=== PATIENT | female | born 1955 | race Caucasian/White ===

== ENCOUNTER 2024-10-18 12:39 | Day surgery (SDC) | payer MEDICARE, OTHER ==
[2024-10-18] MEDS ORDERED: LIDOCAINE HCL 2% 100 MG/5 ML IJ ONE (12:40)
[2024-10-18] MEDS ORDERED: Versed 2 MG/2 ML Injection ONE (13:56)
[2024-10-18] MEDS ORDERED: propofoL IV ONE (14:46)
[2024-10-18] MEDS ORDERED: Lactated Ringers 1,000 ML IV ONE (16:10)
--- NOTE | 2024-10-18 17:02 | XRAY ---
Indication: Right C2-C4 MBB. Intraoperative fluoroscopy provided for 18 seconds. 2 digital spot image submitted for interpretation demonstrates posterior needle tips projecting over expected right C2-C4 nerve roots. Correlate with intraoperative findings/report.
--- NOTE | 2024-10-18 17:09 | XRAY ---
18 seconds of fluoroscopy was used in surgery for a right C2-C4 MBB.
== END 2024-10-18 15:20 | disposition home or self-care (01) ==
LOC: SDC-PAIN 12:39
PROVIDERS: ATTEND Psychiatry & Neurology Pain Medicine
DX: M47.812 Spondylosis without myelopathy or radiculopathy, cervical region (principal)

== ENCOUNTER 2024-11-01 14:48 | Day surgery (SDC) | payer MEDICARE, OTHER ==
[2024-11-01] MEDS ORDERED: BUPIVACAINE 0.5% VIAL IJ ONE (14:49)
[2024-11-01] MEDS ORDERED: propofoL IV ONE (17:22)
[2024-11-01] MEDS ORDERED: Lactated Ringers 1,000 ML IV ONE (17:56)
--- NOTE | 2024-11-01 19:06 | XRAY ---
Indication: Right C2-C4 MBB. Intraoperative fluoroscopy provided for 7 seconds. 2 digital spot image submitted for interpretation demonstrates posterior needle tips projecting over expected right C2-C4 nerve roots. Correlate with intraoperative findings/report.
--- NOTE | 2024-11-02 10:15 | XRAY ---
7 seconds of fluoroscopy used in surgery for a right C2-C4 MBB.
== END 2024-11-01 18:00 | disposition home or self-care (01) ==
LOC: SDC-PAIN 14:48
PROVIDERS: ATTEND Psychiatry & Neurology Pain Medicine
DX: M47.812 Spondylosis without myelopathy or radiculopathy, cervical region (principal)

== ENCOUNTER 2024-12-27 13:29 | Day surgery (SDC) | payer MEDICARE, OTHER ==
[2024-12-27] MEDS ORDERED: BUPIVACAINE 0.5% VIAL IJ ONE (13:30)
[2024-12-27] MEDS ORDERED: LIDOCAINE HCL 1% 50 MG/5 ML VL IJ ONE (13:30)
[2024-12-27] MEDS ORDERED: Lactated Ringers 1,000 ML IV ONE (15:49)
[2024-12-27] MEDS ORDERED: propofoL IV ONE (16:12)
--- NOTE | 2024-12-27 16:57 | XRAY ---
Indication: Right C2-C4 RFA. Intraoperative fluoroscopy provided for 41 seconds. 3 digital spot image submitted for interpretation demonstrates posterior needle tips projecting over expected right C2-C4 nerve roots. Correlate with intraoperative findings/report.
--- NOTE | 2024-12-27 19:01 | XRAY ---
41 seconds of fluoroscopy were used in surgery for a right C2-C4 RFA.
== END 2024-12-27 17:05 | disposition home or self-care (01) ==
LOC: SDC-PAIN 13:29
PROVIDERS: ATTEND Psychiatry & Neurology Pain Medicine
DX: M47.812 Spondylosis without myelopathy or radiculopathy, cervical region (principal)